=== PATIENT | female | born 1945 | race Two or more races ===

== ENCOUNTER 2017-08-08 13:01 | Outpatient (CLI) | payer OTHER ==
[~2017-08-08 13:01] MED LIST: CATAFLAM50 MG; CIPRO750 MG PO; CLONAZEPAM1 MG PO; DOCUSATE SODIU100 MG PO; METHYLPRED4 MG/DOSE- PO; NEURONTIN300 MG PO; Neurontin PO; ORPH100T PO; PERCOCET 5/3251 TAB PO
== END 2017-08-08 13:06 | disposition home or self-care (01) ==
LOC: RAD 13:01
DX: M54.5 Low back pain (principal)

== ENCOUNTER 2017-09-11 08:15 | Outpatient (CLI) | payer OTHER | END 2017-09-11 08:18 | disposition home or self-care (01) | LOC: LAB 08:15 | DX: I10 Essential (primary) hypertension (principal); E11.9 Type 2 diabetes mellitus without complications; E03.8 Other specified hypothyroidism; E78.2 Mixed hyperlipidemia; K52.1 Toxic gastroenteritis and colitis; D64.0 Hereditary sideroblastic anemia ==

== ENCOUNTER → 2017-09-11 | Outpatient (CLI) | payer OTHER | END | disposition home or self-care (01) | LOC: MRI 11:46 | DX: M51.36 Other intervertebral disc degeneration, lumbar region (principal); Z98.1 Arthrodesis status | CPT/HCPCS: 72148 ==

== ENCOUNTER 2017-09-29 12:28 | Emergency (ER) | payer OTHER ==
[~2017-09-29] VITALS: Ht 157.5 cm; Wt 90.7 kg
== END 2017-09-29 14:56 | disposition home or self-care (01) ==
LOC: ER 12:28
DX: M54.5 Low back pain (principal)

== ENCOUNTER → 2017-11-21 07:42 | Outpatient (CLI) | payer OTHER | END | disposition home or self-care (01) | LOC: LAB 07:42 | DX: I10 Essential (primary) hypertension (principal); E11.9 Type 2 diabetes mellitus without complications; E03.8 Other specified hypothyroidism; E78.2 Mixed hyperlipidemia; K92.1 Melena; D64.0 Hereditary sideroblastic anemia ==

== ENCOUNTER 2017-11-23 12:03 | Outpatient (CLI) | payer OTHER | END 2017-11-23 13:33 | disposition home or self-care (01) | LOC: LAB 12:03 | DX: I10 Essential (primary) hypertension (principal); E11.9 Type 2 diabetes mellitus without complications; E03.8 Other specified hypothyroidism; E78.2 Mixed hyperlipidemia; K92.1 Melena; D64.0 Hereditary sideroblastic anemia ==

== ENCOUNTER 2017-12-13 10:43 | Outpatient (CLI) | payer OTHER | END 2017-12-13 15:00 | disposition home or self-care (01) | LOC: LAB → MAMO-SONO 10:43 | DX: Z12.31 Encounter for screening mammogram for malignant neoplasm of breast (principal); Z87.898 Personal history of other specified conditions; N62 Hypertrophy of breast ==

== ENCOUNTER 2018-05-30 08:21 | Outpatient (CLI) | payer OTHER | END 2018-05-30 08:26 | disposition home or self-care (01) | LOC: LAB 08:21 | DX: I10 Essential (primary) hypertension (principal); E11.9 Type 2 diabetes mellitus without complications; E03.8 Other specified hypothyroidism; E78.2 Mixed hyperlipidemia ==

== ENCOUNTER 2018-06-06 09:41 | Outpatient (CLI) | payer OTHER | END 2018-06-06 09:54 | disposition home or self-care (01) | LOC: RAD 501 09:41 | DX: M54.5 Low back pain (principal); M54.11 Radiculopathy, occipito-atlanto-axial region ==

== ENCOUNTER 2018-08-28 12:09 | Outpatient (CLI) | payer OTHER | END 2018-08-28 12:11 | disposition home or self-care (01) | LOC: SONOGRAMA 12:09 | DX: S93.402A Sprain of unspecified ligament of left ankle, initial encounter (principal) ==

== ENCOUNTER 2018-09-04 08:26 | Outpatient (CLI) | payer OTHER | END 2018-09-04 08:32 | disposition home or self-care (01) | LOC: LAB 08:26 | DX: I10 Essential (primary) hypertension (principal); E11.9 Type 2 diabetes mellitus without complications; E03.8 Other specified hypothyroidism; E78.2 Mixed hyperlipidemia ==

== ENCOUNTER 2018-09-21 09:00 | Outpatient (CLI) | payer OTHER ==
[2018-09-21] MEDS ORDERED: METFORMIN HCL500 MG (10:42)
[2018-09-21] MEDS ORDERED: SYNTHROID50 MCG (10:43)
== END 2018-09-21 09:06 | disposition home or self-care (01) ==
LOC: LAB 09:00
DX: R79.1 Abnormal coagulation profile (principal)

== ENCOUNTER 2018-09-21 09:56 | Emergency (ER) | payer OTHER ==
[~2018-09-21] VITALS: Ht 157.5 cm; Wt 45.4 kg
[2018-09-21] MEDS ORDERED: METFORMIN HCL500 MG (10:42)
[2018-09-21] MEDS ORDERED: SYNTHROID50 MCG (10:43)
== END 2018-09-21 15:10 | disposition home or self-care (01) ==
LOC: ER 09:56
DX: M62.830 Muscle spasm of back (principal)

== ENCOUNTER 2018-09-26 11:20 | Outpatient (CLI) | payer OTHER ==
[~2018-09-26 11:20] MED LIST changes: +METFORMIN HCL500 MG; +SYNTHROID50 MCG
== END 2018-09-26 11:29 | disposition home or self-care (01) ==
LOC: MRI 11:20
DX: M51.16 Intervertebral disc disorders with radiculopathy, lumbar region (principal)
CPT/HCPCS: 72148

== ENCOUNTER 2018-12-03 09:41 | Outpatient (CLI) | payer OTHER | END 2018-12-03 12:33 | disposition home or self-care (01) | LOC: LAB 09:41 | DX: E11.9 Type 2 diabetes mellitus without complications (principal); E03.8 Other specified hypothyroidism; E78.2 Mixed hyperlipidemia; I10 Essential (primary) hypertension; Z12.11 Encounter for screening for malignant neoplasm of colon ==

== ENCOUNTER 2018-12-06 09:16 | Outpatient (CLI) | payer OTHER | END 2018-12-06 09:24 | disposition home or self-care (01) | LOC: LAB 09:16 | DX: E11.9 Type 2 diabetes mellitus without complications (principal); E03.8 Other specified hypothyroidism; E78.2 Mixed hyperlipidemia; I10 Essential (primary) hypertension; Z12.11 Encounter for screening for malignant neoplasm of colon ==

== ENCOUNTER 2019-03-24 09:11 | Outpatient (CLI) | payer OTHER | END 2019-03-24 09:18 | disposition home or self-care (01) | LOC: LAB 09:11 | DX: I10 Essential (primary) hypertension (principal); E11.9 Type 2 diabetes mellitus without complications; E03.8 Other specified hypothyroidism; E78.2 Mixed hyperlipidemia ==

== ENCOUNTER 2019-06-05 08:22 | Outpatient (CLI) | payer OTHER | END 2019-06-05 17:19 | disposition home or self-care (01) | LOC: LAB 08:22 | DX: I11.9 Hypertensive heart disease without heart failure (principal); E78.2 Mixed hyperlipidemia; E03.8 Other specified hypothyroidism; D63.8 Anemia in other chronic diseases classified elsewhere ==

== ENCOUNTER 2019-06-06 07:33 | Outpatient (CLI) | payer OTHER | END 2019-06-06 08:00 | disposition home or self-care (01) | LOC: NUCLEAR 07:33 | DX: I25.9 Chronic ischemic heart disease, unspecified (principal); I11.9 Hypertensive heart disease without heart failure | CPT/HCPCS: 78452; 93017; A9500; J0153 ==

== ENCOUNTER → 2019-06-12 | Outpatient (CLI) | payer OTHER | END | disposition home or self-care (01) | LOC: MAMO-SONO 10:08 | DX: Z12.31 Encounter for screening mammogram for malignant neoplasm of breast (principal); Z87.898 Personal history of other specified conditions; N63.10 Unspecified lump in the right breast, unspecified quadrant; N63.20 Unspecified lump in the left breast, unspecified quadrant; N64.4 Mastodynia; N60.11 Diffuse cystic mastopathy of right breast ==

== ENCOUNTER 2019-07-15 12:21 | Emergency (ER) | payer OTHER ==
[~2019-07-15] VITALS: Ht 154.9 cm; Wt 95.3 kg
[2019-07-15] MEDS ORDERED: PROTONIX20 MG PO (12:33)
== END 2019-07-15 20:23 | disposition home or self-care (01) ==
LOC: ER 12:21
DX: G89.29 Other chronic pain (principal); R10.32 Left lower quadrant pain

== ENCOUNTER 2019-08-12 11:55 | Emergency (ER) | payer OTHER ==
[~2019-08-12] VITALS: Ht 154.9 cm; Wt 90.7 kg
[~2019-08-12 11:55] MED LIST changes: +PROTONIX20 MG PO
== END 2019-08-12 13:45 | disposition home or self-care (01) ==
LOC: ER 11:55
DX: M54.32 Sciatica, left side (principal)

== ENCOUNTER 2019-08-17 13:53 | Emergency (ER) | payer OTHER ==
[~2019-08-17] VITALS: Ht 154.9 cm; Wt 90.7 kg
[2019-08-17] MEDS ORDERED: NORFLEX100MG PO (14:30)
[2019-08-17] MEDS ORDERED: ULTRAM50 MG PO (14:30)
== END 2019-08-17 21:24 | disposition home or self-care (01) ==
LOC: ER 13:53
DX: R10.32 Left lower quadrant pain (principal)

== ENCOUNTER 2019-08-25 00:01 | Emergency (ER) | payer OTHER ==
[~2019-08-25] VITALS: Ht 157.5 cm; Wt 89.4 kg
[~2019-08-25 00:01] MED LIST changes: +NORFLEX100MG PO; +ULTRAM50 MG PO
[2019-08-25] MEDS ORDERED: LOSARTAN-HCTZ1 EAC2 (00:43)
[2019-08-25] MEDS ORDERED: CIPRO500 MG PO (06:26)
== END 2019-08-25 06:37 | disposition home or self-care (01) ==
LOC: ER 00:01
DX: K57.92 Diverticulitis of intestine, part unspecified, without perforation or abscess without bleeding (principal); N39.0 Urinary tract infection, site not specified; B96.29 Other Escherichia coli [E. coli] as the cause of diseases classified elsewhere

== ENCOUNTER 2019-08-28 10:46 | Inpatient (IN) | payer OTHER ==
[~2019-08-28] VITALS: Ht 154.9 cm; Wt 89.4 kg
[~2019-08-28 10:46] MED LIST changes: +CIPRO500 MG PO; +LOSARTAN-HCTZ1 EAC2
[2019-09-04] MEDS ORDERED: LIPITOR20 MG PO (14:08)
[2019-09-11] MEDS ORDERED: LOSARTAN POTAS100 MG PO (09:18)
[2019-09-11] MEDS ORDERED: ENDOCET 5-3251 EACH (09:20)
[2019-09-11] MEDS ORDERED: HYDROCHLOROTHIA25 MG PO (09:20)
[2019-09-11] MEDS ORDERED: PANTOPRAZOLE SO40 MG PO (09:21)
[2019-09-11] MEDS ORDERED: ULTRAM50 MG (09:21)
[2019-09-17] MEDS ORDERED: INTESTINEX680 M1 PO (14:37)
[2019-09-17] MEDS ORDERED: HYOSCYAMINE0.125 M1 SL (14:37)
[2019-09-17] MEDS ORDERED: KETO10TA2 PO (14:38)
== END 2019-09-17 15:09 | disposition home or self-care (01) | DRG 330 ==
LOC: O/R 09-10 06:40 → SURG 09-10 06:40
PROVIDERS: ADMIT Surgery
PROC: 0UT64ZZ Resection of Left Fallopian Tube, Percutaneous Endoscopic Approach (ICD-10-PCS; 2019-09-10)
PROC: 0UT14ZZ Resection of Left Ovary, Percutaneous Endoscopic Approach (ICD-10-PCS; 2019-09-10)
PROC: 0DQN4ZZ Repair Sigmoid Colon, Percutaneous Endoscopic Approach (ICD-10-PCS; 2019-09-10)
PROC: 0DJD8ZZ Inspection of Lower Intestinal Tract, Via Natural or Artificial Opening Endoscopic (ICD-10-PCS; 2019-09-10)
PROC: 0DTN4ZZ Resection of Sigmoid Colon, Percutaneous Endoscopic Approach (ICD-10-PCS; principal; 2019-09-10 14:30)
PROC: BW21YZZ Computerized Tomography (CT Scan) of Abdomen and Pelvis using Other Contrast (ICD-10-PCS; 2019-09-15)
DX: K57.20 Diverticulitis of large intestine with perforation and abscess without bleeding (principal); N32.1 Vesicointestinal fistula; D62 Acute posthemorrhagic anemia; N83.332 Acquired atrophy of left ovary and fallopian tube; K63.89 Other specified diseases of intestine; E03.8 Other specified hypothyroidism; E11.65 Type 2 diabetes mellitus with hyperglycemia; Z79.4 Long term (current) use of insulin

== ENCOUNTER 2019-09-03 08:53 | Outpatient (CLI) | payer OTHER ==
[2019-09-04] MEDS ORDERED: LIPITOR20 MG PO (14:08)
== END 2019-09-03 15:00 | disposition home or self-care (01) ==
LOC: LAB 08:53
DX: E03.8 Other specified hypothyroidism (principal); M33.12 Other dermatomyositis with myopathy; I10 Essential (primary) hypertension; M06.9 Rheumatoid arthritis, unspecified; M32.19 Other organ or system involvement in systemic lupus erythematosus; M81.0 Age-related osteoporosis without current pathological fracture; E11.9 Type 2 diabetes mellitus without complications; E78.2 Mixed hyperlipidemia

== ENCOUNTER 2019-09-09 06:10 | Day surgery (SDC) | payer OTHER ==
[~2019-09-09 06:10] MED LIST changes: +LIPITOR20 MG PO
== END 2019-09-09 10:19 | disposition home or self-care (01) ==
LOC: AMB-ENDOS 06:10
DX: K57.20 Diverticulitis of large intestine with perforation and abscess without bleeding (principal)

== ENCOUNTER → 2019-12-16 09:31 | Outpatient (CLI) | payer OTHER ==
[~2019-12-16 09:31] MED LIST changes: +ENDOCET 5-3251 EACH; +HYDROCHLOROTHIA25 MG PO; +HYOSCYAMINE0.125 M1 SL; +INTESTINEX680 M1 PO; +KETO10TA2 PO; +LOSARTAN POTAS100 MG PO; +PANTOPRAZOLE SO40 MG PO; +ULTRAM50 MG
== END | disposition home or self-care (01) ==
LOC: LAB 09:31
DX: E11.9 Type 2 diabetes mellitus without complications (principal); I10 Essential (primary) hypertension; E03.8 Other specified hypothyroidism; E78.2 Mixed hyperlipidemia

== ENCOUNTER 2020-02-02 10:43 | Outpatient (CLI) | payer OTHER | END 2020-02-02 10:48 | disposition home or self-care (01) | LOC: LAB 10:43 | DX: B35.1 Tinea unguium (principal) ==

== ENCOUNTER 2020-04-14 07:49 | Outpatient (CLI) | payer OTHER | END 2020-04-14 07:56 | disposition home or self-care (01) | LOC: LAB 07:49 | PROVIDERS: ATTEND Internal Medicine Cardiovascular Disease | DX: I10 Essential (primary) hypertension (principal); E11.9 Type 2 diabetes mellitus without complications; E03.8 Other specified hypothyroidism; E78.2 Mixed hyperlipidemia; Z12.11 Encounter for screening for malignant neoplasm of colon; E55.9 Vitamin D deficiency, unspecified; R05 Cough; R06.2 Wheezing; R50.9 Fever, unspecified ==

== ENCOUNTER → 2020-04-17 10:25 | Outpatient (CLI) | payer OTHER | END | disposition home or self-care (01) | LOC: LAB 10:25 | PROVIDERS: ATTEND Internal Medicine Cardiovascular Disease | DX: U07.1 COVID-19 (principal); E03.8 Other specified hypothyroidism; I10 Essential (primary) hypertension; E11.9 Type 2 diabetes mellitus without complications; E78.2 Mixed hyperlipidemia; Z12.11 Encounter for screening for malignant neoplasm of colon; E55.9 Vitamin D deficiency, unspecified; R05 Cough; R06.2 Wheezing; R50.9 Fever, unspecified ==

== ENCOUNTER 2020-05-11 09:17 | Outpatient (CLI) | payer OTHER | END 2020-05-11 09:18 | disposition home or self-care (01) | LOC: SONOGRAMA 09:17 | PROVIDERS: ATTEND Surgery | DX: R10.84 Generalized abdominal pain (principal); K57.30 Diverticulosis of large intestine without perforation or abscess without bleeding ==

== ENCOUNTER → 2020-08-18 09:29 | Outpatient (CLI) | payer OTHER | END | disposition home or self-care (01) | LOC: LAB 09:29 | PROVIDERS: ATTEND Internal Medicine Cardiovascular Disease | DX: I10 Essential (primary) hypertension (principal); E11.9 Type 2 diabetes mellitus without complications; E03.8 Other specified hypothyroidism; D55.9 Anemia due to enzyme disorder, unspecified; Z12.11 Encounter for screening for malignant neoplasm of colon ==

== ENCOUNTER 2020-08-25 12:26 | Outpatient (CLI) | payer OTHER | END 2020-08-25 12:33 | disposition home or self-care (01) | LOC: LAB 12:26 | PROVIDERS: ATTEND Internal Medicine Cardiovascular Disease | DX: I10 Essential (primary) hypertension (principal); E11.9 Type 2 diabetes mellitus without complications; E03.8 Other specified hypothyroidism; E78.2 Mixed hyperlipidemia; E55.9 Vitamin D deficiency, unspecified; Z12.11 Encounter for screening for malignant neoplasm of colon ==

== ENCOUNTER → 2020-09-23 | Day surgery (SDC) | payer OTHER | END | disposition home or self-care (01) | LOC: ADM 09-17 13:30 → AMB-ENDOS 07:10 | PROVIDERS: ATTEND Surgery | DX: K62.4 Stenosis of anus and rectum (principal); Z20.822 Contact with and (suspected) exposure to COVID-19 ==

== ENCOUNTER 2020-09-29 11:48 | Outpatient (CLI) | payer OTHER | END 2020-09-29 11:59 | disposition home or self-care (01) | LOC: MAMO-SONO 11:48 | PROVIDERS: ATTEND Obstetrics & Gynecology Maternal & Fetal Medicine | DX: Z12.31 Encounter for screening mammogram for malignant neoplasm of breast (principal); Z87.898 Personal history of other specified conditions; N63.0 Unspecified lump in unspecified breast; N64.4 Mastodynia; N60.11 Diffuse cystic mastopathy of right breast ==

== ENCOUNTER 2020-11-15 08:32 | Outpatient (CLI) | payer OTHER | END 2020-11-15 08:34 | disposition home or self-care (01) | LOC: NUCLEAR 08:32 | PROVIDERS: ATTEND Surgery | DX: K57.30 Diverticulosis of large intestine without perforation or abscess without bleeding (principal); K62.4 Stenosis of anus and rectum | CPT/HCPCS: 78227; A9537 ==

== ENCOUNTER 2021-01-12 09:49 | Outpatient (CLI) | payer OTHER | END 2021-01-12 15:00 | disposition home or self-care (01) | LOC: LAB 09:49 | PROVIDERS: ATTEND Internal Medicine Cardiovascular Disease | DX: E11.9 Type 2 diabetes mellitus without complications (principal); I10 Essential (primary) hypertension; E03.9 Hypothyroidism, unspecified; E78.2 Mixed hyperlipidemia ==

== ENCOUNTER 2021-05-19 09:32 | Outpatient (CLI) | payer OTHER | END 2021-05-19 09:33 | disposition home or self-care (01) | LOC: LAB 09:32 | PROVIDERS: ATTEND Internal Medicine Cardiovascular Disease | DX: I10 Essential (primary) hypertension (principal); E11.9 Type 2 diabetes mellitus without complications; E03.8 Other specified hypothyroidism; E78.2 Mixed hyperlipidemia ==

== ENCOUNTER 2021-06-29 10:36 | Outpatient (CLI) | payer OTHER | END 2021-06-29 13:13 | disposition home or self-care (01) | LOC: RAD 10:36 | PROVIDERS: ATTEND Internal Medicine Cardiovascular Disease | DX: M79.642 Pain in left hand (principal); M79.641 Pain in right hand; M12.841 Other specific arthropathies, not elsewhere classified, right hand; M12.842 Other specific arthropathies, not elsewhere classified, left hand ==

== ENCOUNTER 2021-10-05 09:08 | Outpatient (CLI) | payer OTHER | END 2021-10-05 20:00 | disposition home or self-care (01) | LOC: LAB 09:08 | PROVIDERS: ATTEND Internal Medicine Cardiovascular Disease | DX: E03.9 Hypothyroidism, unspecified (principal); I10 Essential (primary) hypertension; E11.9 Type 2 diabetes mellitus without complications; E78.2 Mixed hyperlipidemia; Z12.11 Encounter for screening for malignant neoplasm of colon; E55.9 Vitamin D deficiency, unspecified ==

== ENCOUNTER 2022-02-01 09:50 | Outpatient (CLI) | payer OTHER | END 2022-02-01 09:57 | disposition home or self-care (01) | LOC: LAB 09:50 | PROVIDERS: ATTEND Internal Medicine Cardiovascular Disease | DX: I10 Essential (primary) hypertension (principal); E11.9 Type 2 diabetes mellitus without complications; E03.9 Hypothyroidism, unspecified; E78.2 Mixed hyperlipidemia ==

== ENCOUNTER 2022-06-15 08:47 | Outpatient (CLI) | payer OTHER | END 2022-06-15 08:48 | disposition home or self-care (01) | LOC: LAB 08:47 | PROVIDERS: ATTEND Internal Medicine Cardiovascular Disease | DX: I10 Essential (primary) hypertension (principal); E11.9 Type 2 diabetes mellitus without complications; E03.9 Hypothyroidism, unspecified; E78.2 Mixed hyperlipidemia ==

== ENCOUNTER 2022-08-17 12:01 | Outpatient (CLI) | payer OTHER | END 2022-08-17 12:10 | disposition home or self-care (01) | LOC: MAMO-SONO 12:01 | PROVIDERS: ATTEND Internal Medicine Cardiovascular Disease | DX: N63.11 Unspecified lump in the right breast, upper outer quadrant (principal) ==

== ENCOUNTER → 2022-09-27 | Outpatient (CLI) | payer OTHER | END | disposition home or self-care (01) | LOC: NUCLEAR 12:38 | PROVIDERS: ATTEND Obstetrics & Gynecology Maternal & Fetal Medicine | DX: M81.0 Age-related osteoporosis without current pathological fracture (principal) ==

== ENCOUNTER 2022-11-14 09:59 | Outpatient (CLI) | payer OTHER | END 2022-11-14 10:05 | disposition home or self-care (01) | LOC: LAB 09:59 | PROVIDERS: ATTEND Internal Medicine Cardiovascular Disease | DX: I10 Essential (primary) hypertension (principal); E11.9 Type 2 diabetes mellitus without complications; E03.9 Hypothyroidism, unspecified; E78.2 Mixed hyperlipidemia; Z12.11 Encounter for screening for malignant neoplasm of colon; E55.9 Vitamin D deficiency, unspecified ==

== ENCOUNTER 2022-11-17 10:10 | Outpatient (CLI) | payer OTHER | END 2022-11-17 15:10 | disposition home or self-care (01) | LOC: LAB 10:10 | PROVIDERS: ATTEND Internal Medicine Cardiovascular Disease | DX: I10 Essential (primary) hypertension (principal); E11.9 Type 2 diabetes mellitus without complications; E03.9 Hypothyroidism, unspecified; E78.2 Mixed hyperlipidemia; Z12.11 Encounter for screening for malignant neoplasm of colon; E55.9 Vitamin D deficiency, unspecified ==

== ENCOUNTER 2022-12-05 10:07 | Outpatient (CLI) | payer OTHER | END 2022-12-05 10:11 | disposition home or self-care (01) | LOC: TOM 10:07 | PROVIDERS: ATTEND Psychiatry & Neurology Clinical Neurophysiology | DX: F01.50 Vascular dementia, unspecified severity, without behavioral disturbance, psychotic disturbance, mood disturbance, and anxiety (principal) ==

== ENCOUNTER → 2023-03-15 09:13 | Outpatient (CLI) | payer OTHER | END | disposition home or self-care (01) | LOC: LAB 09:13 | PROVIDERS: ATTEND Internal Medicine Cardiovascular Disease | DX: E03.9 Hypothyroidism, unspecified (principal); I10 Essential (primary) hypertension; E78.2 Mixed hyperlipidemia; E11.9 Type 2 diabetes mellitus without complications ==

== ENCOUNTER 2023-08-22 09:25 | Outpatient (CLI) | payer OTHER ==
[~2023-08-22 09:25] MED LIST changes: +DICLOFENAC SODI75 MG PO
[2023-08-22 10:12] LABS: HEMATOCRIT 34.8 % (36.0-45.00); HEMOGLOBIN 11.3 g/dL (12.0-15.00); MEAN CORPUSCULAR HEMOGLOBIN 28.7 pg (27.00-32.0); MEAN CORPUSCULAR HGB CONC 32.6 g/dl (32.0-36.0); PLATELET COUNT 205 K/uL (150-450); RED BLOOD COUNT 3.95 M/uL (4.00-6.00); RED CELL DISTRIBUTION WIDTH 14.9 % (11.5-14.5)
[2023-08-22 10:19] LABS: PH,URINE 5.5 (5.0-8.0); URINE APPEARANCE Clear; URINE BILIRRUBIN Negative (NEGATIVE); URINE BLOOD Negative; URINE COLOR Yellow; URINE GLUCOSE Negative (NEGATIVE); URINE LEUKOCYTE Small; URINE NITRATE Negative; URINE PROTEIN Negative (NEGATIVE)
[2023-08-22 10:27] LABS: URINE BACTERIA 488.8 uL (0.0-1933); URINE EPITHELIAL CELLS 29.2 uL (0.0-38.8); URINE RBC 47.8 uL (0.0-20.8); URINE WBC 34.1 uL (0.0-23.2)
[2023-08-22 10:48] LABS: ALBUMIN 3.8 gm/dL (3.4-5.0); BILIRUBIN TOTAL 0.79 mg/dL (0.3-1.2); CALCIUM 10.5 mg/dL (8.5-10.1); CHOL HDL RATIO 2.8 (0-5.0); CREATININE SERUM 1.33 mg/dL (0.55-1.02); GFR 38.79; GLOBULINA 3.3 G/DL (2.4-3.5); POTASSIUM 4.58 mEq/L (3.5-5.1); T4 TOTAL 10.71 UG/DL (4.8-13.9); TOTAL PROTEIN 7.1 gm/dL (6.4-8.2); TSH 1.67 uIU/mL (0.358-3.74)
[2023-08-22 11:55] LABS: T3 TOTAL 0.893 ng/ml (0.846-2.02); VITAMIN D3 25 HYDROXY 103.1 ng/ml (30-120)
== END 2023-08-22 09:35 | disposition home or self-care (01) ==
LOC: LAB 09:25
PROVIDERS: ATTEND Internal Medicine Cardiovascular Disease
DX: I10 Essential (primary) hypertension (principal); E11.9 Type 2 diabetes mellitus without complications; E03.9 Hypothyroidism, unspecified; E78.2 Mixed hyperlipidemia; Z12.11 Encounter for screening for malignant neoplasm of colon; E55.9 Vitamin D deficiency, unspecified

== ENCOUNTER → 2023-08-25 10:29 | Outpatient (CLI) | payer OTHER ==
[2023-08-25 19:18] LABS: ob POSITIVE (NEGATIVE)
== END | disposition home or self-care (01) ==
LOC: LAB 10:29
PROVIDERS: ATTEND Internal Medicine Cardiovascular Disease
DX: I10 Essential (primary) hypertension (principal); E11.9 Type 2 diabetes mellitus without complications; E03.9 Hypothyroidism, unspecified; E78.2 Mixed hyperlipidemia; Z12.11 Encounter for screening for malignant neoplasm of colon; E55.9 Vitamin D deficiency, unspecified

== ENCOUNTER 2023-09-04 13:09 | Emergency (ER) | payer OTHER ==
[~2023-09-04] VITALS: Ht 167.6 cm; Wt 86.2 kg
[2023-09-04] MEDS ORDERED: PERCOCET 10-321 EACH (13:35)
[2023-09-04] MEDS ORDERED: GRALISE600 MG (13:39)
== END 2023-09-04 16:12 | disposition home or self-care (01) ==
LOC: ER 13:09
DX: M54.9 Dorsalgia, unspecified (principal); G89.29 Other chronic pain
CPT/HCPCS: 96372; 99282; J1100; J1885; J2360

== ENCOUNTER 2023-09-25 14:15 | Outpatient (CLI) | payer OTHER ==
[~2023-09-25 14:15] MED LIST changes: +GRALISE600 MG; +PERCOCET 10-321 EACH
[2023-09-26] MEDS ORDERED: NEURONTIN600 MG PO (10:21)
[2023-09-26] MEDS ORDERED: ZANAFLEX2 MG PO (10:22)
== END 2023-09-25 14:24 | disposition home or self-care (01) ==
LOC: RAD 14:15
PROVIDERS: ATTEND Internal Medicine Cardiovascular Disease
DX: M12.9 Arthropathy, unspecified (principal); M46.47 Discitis, unspecified, lumbosacral region

== ENCOUNTER 2024-03-13 09:07 | Outpatient (CLI) | payer OTHER ==
[~2024-03-13 09:07] MED LIST changes: +ATORVASTATIN CA20 MG; +BACLOFEN20 MG; +DICLOFENAC POTA50 MG; +FLAGYL375 MG PO; +GABAPENTIN300 M2 PO; +GABAPENTIN600 MG; +LOSARTAN-HCTZ1 EAC1 PO; +METFORMIN HCL500 M4; +NEURONTIN600 MG PO; +PANTOPRAZOLE SO40 MG; +ZANAFLEX2 MG PO
[2024-03-13 10:09] LABS: HEMATOCRIT 32.8 % (36.0-45.00); HEMOGLOBIN 10.9 g/dL (12.0-15.00); MEAN CELL VOLUME 88.9 fL (80.00-100.00); MEAN CORPUSCULAR HEMOGLOBIN 29.4 pg (27.00-32.0); MEAN CORPUSCULAR HGB CONC 33.1 g/dl (32.0-36.0); PLATELET COUNT 237 K/uL (150-450); RED BLOOD COUNT 3.69 M/uL (4.00-6.00); RED CELL DISTRIBUTION WIDTH 14.6 % (11.5-14.5)
[2024-03-13 10:34] LABS: CHOL HDL RATIO 3.1 (0-5.0); CREATININE SERUM 1.48 mg/dL (0.55-1.02); GFR 34.29; POTASSIUM 4.44 mEq/L (3.5-5.1); T4 TOTAL 10.96 UG/DL (4.8-13.9); TSH 1.59 uIU/mL (0.358-3.74)
[2024-03-13 10:34] LABS: URINE APPEARANCE Clear; URINE BILIRRUBIN Negative (NEGATIVE); URINE BLOOD Negative; URINE COLOR Yellow; URINE GLUCOSE Negative (NEGATIVE); URINE KETONE Negative (NEGATIVE); URINE LEUKOCYTE Trace; URINE NITRATE Negative; URINE PROTEIN Negative (NEGATIVE); URINE UROBILINOGEN 0.2 E.U./dl
[2024-03-13 10:38] LABS: URINE BACTERIA 319.9 uL (0.0-1933); URINE EPITHELIAL CELLS 29.1 uL (0.0-38.8); URINE RBC 25.1 uL (0.0-20.8); URINE WBC 21.3 uL (0.0-23.2)
== END 2024-03-13 09:08 | disposition home or self-care (01) ==
LOC: LAB 09:07
PROVIDERS: ATTEND Internal Medicine Cardiovascular Disease
DX: E78.2 Mixed hyperlipidemia (principal); E03.9 Hypothyroidism, unspecified; E11.9 Type 2 diabetes mellitus without complications; I10 Essential (primary) hypertension

== ENCOUNTER 2024-05-27 09:44 | Outpatient (CLI) | payer OTHER ==
[2024-05-27 10:37] LABS: HEMATOCRIT 35.1 % (36.0-45.00); HEMOGLOBIN 11.4 g/dL (12.0-15.00); MEAN CELL VOLUME 89.3 fL (80.00-100.00); MEAN CORPUSCULAR HGB CONC 32.4 g/dl (32.0-36.0); PLATELET COUNT 203 K/uL (150-450); RED BLOOD COUNT 3.93 M/uL (4.00-6.00); RED CELL DISTRIBUTION WIDTH 14.8 % (11.5-14.5)
[2024-05-27 11:01] LABS: URINE APPEARANCE Clear; URINE BACTERIA 428.3 uL (0.0-1933); URINE BILIRRUBIN Negative (NEGATIVE); URINE BLOOD Negative; URINE COLOR Yellow; URINE EPITHELIAL CELLS 33.6 uL (0.0-38.8); URINE GLUCOSE Negative (NEGATIVE); URINE KETONE Negative (NEGATIVE); URINE LEUKOCYTE Small; URINE NITRATE Negative; URINE PROTEIN Negative (NEGATIVE); URINE UROBILINOGEN 0.2 E.U./dl; URINE WBC 33.2 uL (0.0-23.2)
[2024-05-27 11:18] LABS: URINE YEAST FEW /hpf
[2024-05-27 11:30] LABS: CALCIUM 10.3 mg/dL (8.5-10.1); CREATININE SERUM 1.36 mg/dL (0.55-1.02); GFR 37.8; POTASSIUM 4.51 mEq/L (3.5-5.1); T4 TOTAL 10.19 UG/DL (4.8-13.9); TSH 1.53 uIU/mL (0.358-3.74)
== END 2024-05-27 09:45 | disposition home or self-care (01) ==
LOC: LAB 09:44
PROVIDERS: ATTEND Internal Medicine Cardiovascular Disease
DX: E03.9 Hypothyroidism, unspecified (principal); E78.2 Mixed hyperlipidemia; I10 Essential (primary) hypertension; E11.9 Type 2 diabetes mellitus without complications

== ENCOUNTER → 2024-07-02 | Outpatient (CLI) | payer OTHER | END | disposition home or self-care (01) | LOC: MAMO-SONO 09:33 | PROVIDERS: ATTEND Internal Medicine Cardiovascular Disease | DX: N60.11 Diffuse cystic mastopathy of right breast (principal); N60.12 Diffuse cystic mastopathy of left breast; Z12.31 Encounter for screening mammogram for malignant neoplasm of breast ==

== ENCOUNTER 2024-08-09 11:28 | Emergency (ER) | payer OTHER ==
[~2024-08-09] VITALS: Ht 165.1 cm; Wt 81.6 kg
[2024-08-09 17:43] LABS: URINE APPEARANCE Cloudy; URINE BILIRRUBIN Negative (NEGATIVE); URINE BLOOD Negative; URINE COLOR Yellow; URINE GLUCOSE Negative (NEGATIVE); URINE KETONE Trace (NEGATIVE); URINE LEUKOCYTE Negative; URINE NITRATE Negative; URINE PROTEIN 30 (NEGATIVE)
[2024-08-09 17:47] LABS: URINE BACTERIA 660.8 uL (0.0-1933); URINE CAST 4.56 uL (0.0-1.40); URINE EPITHELIAL CELLS 31.6 uL (0.0-38.8); URINE RBC 34.3 uL (0.0-20.8); URINE WBC 8.2 uL (0.0-23.2)
[2024-08-09 18:36] LABS: HEMATOCRIT 36.7 % (36.0-45.00); HEMOGLOBIN 12.2 g/dL (12.0-15.00); MEAN CELL VOLUME 88.4 fL (80.00-100.00); MEAN CORPUSCULAR HEMOGLOBIN 29.5 pg (27.00-32.0); MEAN CORPUSCULAR HGB CONC 33.3 g/dl (32.0-36.0); PLATELET COUNT 183 K/uL (150-450); RED BLOOD COUNT 4.15 M/uL (4.00-6.00); RED CELL DISTRIBUTION WIDTH 14.6 % (11.5-14.5)
[2024-08-09 19:05] LABS: URINE YEAST FEW /hpf
[2024-08-09] MEDS ORDERED: OSEL75CA PO (19:19)
== END 2024-08-09 18:53 | disposition home or self-care (01) ==
LOC: ER 11:30
DX: S09.8XXA Other specified injuries of head, initial encounter (principal); W18.39XA Other fall on same level, initial encounter; Y93.89 Activity, other specified; Y92.012 Bathroom of single-family (private) house as the place of occurrence of the external cause; I10 Essential (primary) hypertension; M81.8 Other osteoporosis without current pathological fracture; M54.50 Low back pain, unspecified; J10.1 Influenza due to other identified influenza virus with other respiratory manifestations; Z20.822 Contact with and (suspected) exposure to COVID-19

== ENCOUNTER 2024-08-22 09:41 | Outpatient (CLI) | payer OTHER ==
[~2024-08-22 09:41] MED LIST changes: +OSEL75CA PO
[2024-08-22 10:44] LABS: PH,URINE 5.5 (5.0-8.0); URINE APPEARANCE Clear; URINE BILIRRUBIN Negative (NEGATIVE); URINE BLOOD Negative; URINE COLOR Yellow; URINE GLUCOSE Negative (NEGATIVE); URINE KETONE Negative (NEGATIVE); URINE LEUKOCYTE Negative; URINE NITRATE Negative; URINE PROTEIN Negative (NEGATIVE); URINE UROBILINOGEN 0.2 E.U./dl
[2024-08-22 10:46] LABS: URINE EPITHELIAL CELLS 40.5 uL (0.0-38.8); URINE RBC 25.6 uL (0.0-20.8); URINE WBC 11.3 uL (0.0-23.2)
[2024-08-22 10:47] LABS: URINE CAST 0.14 uL (0.0-1.40)
[2024-08-22 10:48] LABS: HEMATOCRIT 34.5 % (36.0-45.00); HEMOGLOBIN 11.4 g/dL (12.0-15.00); MEAN CELL VOLUME 88.6 fL (80.00-100.00); MEAN CORPUSCULAR HEMOGLOBIN 29.3 pg (27.00-32.0); PLATELET COUNT 247 K/uL (150-450); RED CELL DISTRIBUTION WIDTH 14.3 % (11.5-14.5)
[2024-08-22 11:59] LABS: ALBUMIN 3.6 gm/dL (3.4-5.0); BILIRUBIN TOTAL 0.65 mg/dL (0.3-1.2); CALCIUM 9.9 mg/dL (8.5-10.1); CHOL HDL RATIO 3.3 (0-5.0); CREATININE SERUM 1.54 mg/dL (0.55-1.02); GFR 32.66; GLOBULINA 3.5 G/DL (2.4-3.5); POTASSIUM 4.76 mEq/L (3.5-5.1); T4 TOTAL 10.56 UG/DL (4.8-13.9); TOTAL PROTEIN 7.1 gm/dL (6.4-8.2); TSH 0.86 uIU/mL (0.358-3.74)
[2024-08-22 12:22] LABS: T3 TOTAL 0.877 ng/ml (0.846-2.02); VITAMIN D3 25 HYDROXY 73.63 ng/ml (30-120)
== END 2024-08-22 09:42 | disposition home or self-care (01) ==
LOC: LAB 09:41
PROVIDERS: ATTEND Internal Medicine Cardiovascular Disease
DX: E03.9 Hypothyroidism, unspecified (principal); E11.9 Type 2 diabetes mellitus without complications; I10 Essential (primary) hypertension; E78.2 Mixed hyperlipidemia; D64.0 Hereditary sideroblastic anemia; Z12.11 Encounter for screening for malignant neoplasm of colon; E55.9 Vitamin D deficiency, unspecified; M81.0 Age-related osteoporosis without current pathological fracture

== ENCOUNTER 2024-08-28 08:49 | Outpatient (CLI) | payer OTHER ==
[2024-08-28 09:36] LABS: ob NEGATIVE (NEGATIVE)
== END 2024-08-28 08:50 | disposition home or self-care (01) ==
LOC: LAB 08:49
PROVIDERS: ATTEND Internal Medicine Cardiovascular Disease
DX: E11.9 Type 2 diabetes mellitus without complications (principal); I10 Essential (primary) hypertension; E03.9 Hypothyroidism, unspecified; E78.2 Mixed hyperlipidemia; D64.0 Hereditary sideroblastic anemia; Z12.11 Encounter for screening for malignant neoplasm of colon; E55.9 Vitamin D deficiency, unspecified; M81.0 Age-related osteoporosis without current pathological fracture

== ENCOUNTER 2024-12-16 08:20 | Outpatient (CLI) | payer OTHER ==
[2024-12-16 09:59] LABS: CALCIUM 9.7 mg/dL (8.5-10.1); CREATININE SERUM 1.44 mg/dL (0.55-1.02); GFR 35.3; POTASSIUM 4.91 mEq/L (3.5-5.1); T4 TOTAL 8.92 UG/DL (4.8-13.9); TSH 1.93 uIU/mL (0.358-3.74)
[2024-12-16 10:01] LABS: PH,URINE 5.5 (5.0-8.0); URINE APPEARANCE Clear; URINE BILIRRUBIN Negative (NEGATIVE); URINE BLOOD Negative; URINE COLOR Yellow; URINE GLUCOSE Negative (NEGATIVE); URINE KETONE Negative (NEGATIVE); URINE LEUKOCYTE Negative; URINE NITRATE Negative; URINE PROTEIN Negative (NEGATIVE); URINE UROBILINOGEN 0.2 E.U./dl
[2024-12-16 10:05] LABS: HEMATOCRIT 34.8 % (34.1-44.9); MEAN CORPUSCULAR HEMOGLOBIN 28.9 pg (25.6-32.2); RED CELL DISTRIBUTION WIDTH 13.3 % (11.6-14.4)
[2024-12-16 10:06] LABS: BASO % 0.7 % (0.1-1.2); EOS % 5.4 % (0.7-7.0); LYMPH % 20.2 % (19.3-53.1); MONO % 10.4 % (4.7-12.5); NEUT # 4.68 (1.56-6.13); PLATELET COUNT 192 K/uL (163-369)
[2024-12-16 10:06] LABS: URINE BACTERIA 775.9 uL (0.0-1933); URINE EPITHELIAL CELLS 27.6 uL (0.0-38.8); URINE RBC 27.5 uL (0.0-20.8); URINE WBC 12.9 uL (0.0-23.2)
[2024-12-16 10:07] LABS: MONO # 0.77 (0.24-0.82)
== END 2024-12-16 08:27 | disposition home or self-care (01) ==
LOC: LAB 08:20
PROVIDERS: ATTEND Internal Medicine Cardiovascular Disease
DX: E11.9 Type 2 diabetes mellitus without complications (principal); E03.9 Hypothyroidism, unspecified; E78.2 Mixed hyperlipidemia; D64.0 Hereditary sideroblastic anemia; Z12.11 Encounter for screening for malignant neoplasm of colon; I10 Essential (primary) hypertension

== ENCOUNTER → 2024-12-23 09:03 | Outpatient (CLI) | payer OTHER ==
[2024-12-23 14:29] LABS: ob NEGATIVE (NEGATIVE)
== END | disposition home or self-care (01) ==
LOC: LAB 09:03
PROVIDERS: ATTEND Internal Medicine Cardiovascular Disease
DX: E11.9 Type 2 diabetes mellitus without complications (principal); I10 Essential (primary) hypertension; E03.9 Hypothyroidism, unspecified; E78.2 Mixed hyperlipidemia; D64.0 Hereditary sideroblastic anemia; Z12.11 Encounter for screening for malignant neoplasm of colon

== ENCOUNTER 2025-02-03 11:46 | Outpatient (CLI) | payer OTHER ==
[2025-02-03 13:30] LABS: ALT/SGPT 39.0 U/L (12-78); AST/SGOT 28.0 U/L (15-37); BILIRUBIN TOTAL 0.46 mg/dL (0.3-1.2); BILIRUBIN,CONJUGATED 0.13 mg/dL (0.0-0.2)
== END 2025-02-03 11:48 | disposition home or self-care (01) ==
LOC: LAB 11:46
PROVIDERS: ATTEND Podiatrist
DX: R94.5 Abnormal results of liver function studies (principal)

== ENCOUNTER 2025-04-15 09:42 | Outpatient (CLI) | payer OTHER ==
[2025-04-15 11:00] LABS: BASO % 0.7 % (0.1-1.2); EOS # 0.38 (0.04-0.54); EOS % 4.5 % (0.7-7.0); LYMPH # 1.51 (1.18-3.74); LYMPH % 17.7 % (19.3-53.1); MEAN PLATELET VOLUME 11.10 fl (9.4-12.4); MONO # 0.74 (0.24-0.82); MONO % 8.7 % (4.7-12.5); NEUT # 5.81 (1.56-6.13); NEUT % 68.2 % (34.0-71.1); RED CELL DISTRIBUTION WIDTH 13.2 % (11.6-14.4)
[2025-04-15 11:10] LABS: URINE APPEARANCE Clear; URINE BILIRRUBIN Negative (NEGATIVE); URINE BLOOD Negative; URINE COLOR Yellow; URINE GLUCOSE Negative (NEGATIVE); URINE KETONE Negative (NEGATIVE); URINE LEUKOCYTE Trace; URINE NITRATE Negative; URINE PROTEIN Negative (NEGATIVE); URINE UROBILINOGEN 0.2 E.U./dl
[2025-04-15 11:14] LABS: URINE BACTERIA 1103.7 uL (0.0-1933); URINE EPITHELIAL CELLS 46.1 uL (0.0-38.8); URINE RBC 4.8 uL (0.0-20.8); URINE WBC 50.4 uL (0.0-23.2)
[2025-04-15 11:22] LABS: URINE CAST 0.00 uL (0.0-1.40)
[2025-04-15 11:59] LABS: BUN CREA RATIO 21.0 (7.0-25.0); CHOL HDL RATIO 3.3 (0-5.0); CREATININE SERUM 1.63 mg/dL (0.55-1.02); GFR 30.59; GLUCOSE FASTING 92.0 mg/dL (65-100); HDL 48.0 mg/dl (40-60); LDL 84.0 mg/dl (0-130); OSMOLALITY SERUM 294.0 MOSM/KG (275-295); T4 TOTAL 9.57 UG/DL (4.8-13.9); TSH 1.49 uIU/mL (0.358-3.74); VLDL 25.0 (0-39)
== END 2025-04-15 09:47 | disposition home or self-care (01) ==
LOC: LAB 09:42
PROVIDERS: ATTEND Internal Medicine Cardiovascular Disease
DX: E03.9 Hypothyroidism, unspecified (principal); E11.9 Type 2 diabetes mellitus without complications; I10 Essential (primary) hypertension; E78.2 Mixed hyperlipidemia

== ENCOUNTER 2025-06-30 09:26 | Outpatient (CLI) | payer OTHER ==
[2025-06-30 10:29] LABS: BASO % 0.8 % (0.1-1.2); EOS # 0.39 (0.04-0.54); EOS % 4.9 % (0.7-7.0); LYMPH # 1.37 (1.18-3.74); LYMPH % 17.3 % (19.3-53.1); MEAN PLATELET VOLUME 10.80 fl (9.4-12.4); MONO # 0.72 (0.24-0.82); MONO % 9.1 % (4.7-12.5); NEUT # 5.36 (1.56-6.13); NEUT % 67.6 % (34.0-71.1); RED CELL DISTRIBUTION WIDTH 13.2 % (11.6-14.4)
[2025-06-30 10:44] LABS: URINE APPEARANCE Clear; URINE BILIRRUBIN Negative (NEGATIVE); URINE BLOOD Negative; URINE COLOR Yellow; URINE GLUCOSE Negative (NEGATIVE); URINE KETONE Negative (NEGATIVE); URINE LEUKOCYTE Negative; URINE NITRATE Negative; URINE PROTEIN Negative (NEGATIVE); URINE UROBILINOGEN 0.2 E.U./dl
[2025-06-30 10:48] LABS: URINE BACTERIA 430.6 uL (0.0-1933); URINE EPITHELIAL CELLS 14.1 uL (0.0-38.8); URINE RBC 10.4 uL (0.0-20.8); URINE WBC 5.6 uL (0.0-23.2)
[2025-06-30 10:55] LABS: URINE CAST 0.00 uL (0.0-1.40)
[2025-06-30 11:25] LABS: ALT/SGPT 33.0 U/L (12-78); AST/SGOT 22.0 U/L (15-37); BILIRUBIN TOTAL 0.37 mg/dL (0.3-1.2); BUN CREA RATIO 22.0 (7.0-25.0); CHOL HDL RATIO 3.1 (0-5.0); CREATININE SERUM 1.62 mg/dL (0.55-1.02); GFR 30.81; GLOBULINA 3.5 G/DL (2.4-3.5); GLUCOSE FASTING 100.0 mg/dL (65-100); HDL 48.0 mg/dl (40-60); LDL 76.0 mg/dl (0-130); OSMOLALITY SERUM 293.0 MOSM/KG (275-295); T4 TOTAL 7.7 UG/DL (4.8-13.9); TSH 1.84 uIU/mL (0.358-3.74); VLDL 22.0 (0-39)
[2025-06-30 11:44] LABS: T3 TOTAL 0.939 ng/ml (0.846-2.02); VITAMIN D3 25 HYDROXY 60.34 ng/ml (30-120)
== END 2025-06-30 09:32 | disposition home or self-care (01) ==
LOC: LAB 09:26
PROVIDERS: ATTEND Internal Medicine Cardiovascular Disease
DX: E03.9 Hypothyroidism, unspecified (principal); E11.9 Type 2 diabetes mellitus without complications; I10 Essential (primary) hypertension; E78.2 Mixed hyperlipidemia; D64.0 Hereditary sideroblastic anemia; Z12.11 Encounter for screening for malignant neoplasm of colon; E55.9 Vitamin D deficiency, unspecified; M81.0 Age-related osteoporosis without current pathological fracture

== ENCOUNTER 2025-07-07 11:10 | Outpatient (CLI) | payer OTHER ==
[2025-07-07 12:36] LABS: ob NEGATIVE (NEGATIVE)
== END 2025-07-07 11:17 | disposition home or self-care (01) ==
LOC: LAB 11:10
PROVIDERS: ATTEND Internal Medicine Cardiovascular Disease
DX: I10 Essential (primary) hypertension (principal); E11.9 Type 2 diabetes mellitus without complications; E03.9 Hypothyroidism, unspecified; E78.2 Mixed hyperlipidemia; D64.0 Hereditary sideroblastic anemia; Z12.11 Encounter for screening for malignant neoplasm of colon; E55.9 Vitamin D deficiency, unspecified; M81.0 Age-related osteoporosis without current pathological fracture